=== PATIENT | female | born 1960 | race Caucasian/White ===

== ENCOUNTER 2016-12-16 12:08 | Emergency (ER) | payer BC, OTHER ==
[~2016-12-16] VITALS: Ht 167.6 cm; Wt 58.7 kg
[2016-12-16 13:34] LABS: Salicylate < 1.7 mg/dL (2.8-20.0)
[2016-12-16 13:37] LABS: Acetaminophen < 2.0 ug/mL (10-30)
[2016-12-16] MEDS ORDERED: LORazepam 0.5 MG TAB PO ONE (15:00)
[2016-12-16 16:14] VITALS: BP 135/88
== END 2016-12-16 16:29 | disposition home or self-care (01) ==
LOC: ER 12:08
DX: F32.9 Major depressive disorder, single episode, unspecified (principal); F41.9 Anxiety disorder, unspecified; R07.9 Chest pain, unspecified; F17.210 Nicotine dependence, cigarettes, uncomplicated
CPT/HCPCS: 36415; 80307; 80320; 80329